=== PATIENT | female | born 1950 | race Caucasian/White ===

== ENCOUNTER 2022-04-12 08:15 | Outpatient (CLI) | payer MEDICARE, SELFPAY ==
--- NOTE | ~2022-04-12 | XR_ITS ---
XR knee LT 2V 04/12/2022 08:39 Indication: Left knee pain Procedure: 2 views left knee Comparison: No prior studies for comparison. Findings: No fracture, subluxation or dislocation. No significant joint space narrowing. No joint eff usion. No foreign bodies. Impression: 1: No significant bone or joint abnormality. Reviewed, dictated and finalized at location A. Impression: 1: No significant bone or joint abnormality.
== END 2022-04-12 08:16 | disposition home or self-care (01) ==
LOC: ANHIMG 08:22
PROVIDERS: PCP Family Medicine; Visit Provider Physician Assistant
DX: M25.562 Pain in left knee (principal)
CPT/HCPCS: 73560

== ENCOUNTER 2022-12-29 08:50 | Outpatient (CLI) | payer MEDICARE, SELFPAY ==
--- NOTE | ~2022-12-29 | MR_ITS ---
EXAMINATION: MR knee LT wo con DATE: 12/29/2022 09:22 INDICATION: Left knee pain and medial sided swelling post injury one year prior TECHNIQUE: Magnetic resonance imaging (MRI) of the left knee was performed without intravenous contra st. Sequences included coronal PD-weighted FSE, coronal PD-weighted FS FSE, sagittal T2-weighted FSE , sagittal PD-weighted FS FSE and axial PD weighted fat saturated FSE. COMPARISON: None. FINDINGS: Medial compartment: Complex tear of the body and posterior horn of the medial meniscus with displacement of a meniscal fl ap arising the meniscal body and which extends cephalad along the medial margin of the anterior weigh tbearing medial femoral condyle. There is diffuse partial thickness cartilage loss with scattered cho ndral surface regularity along the anterior to central weightbearing medial femoral condyle. Addition al partial thickness cartilage loss at the central to medial aspect of the medial tibial plateau. Lateral compartment: Lateral meniscus is normal. Articular cartilage is normal. Patellofemoral compartment: Mild partial-thickness cartilage loss with small amount of deeper chondral fissuring at the cephalad aspect of the medial patellar facet and apical ridge. Trochlear cartilage appears relatively preserve d. Ligaments and tendons: Anterior and posterior cruciate ligaments are normal. The medial collateral ligament and fibular josé ateral ligament complex are normal. The extensor mechanism is normal. The visualized medial and later al hamstring tendons as well as the iliotibial band are normal. Fluid: Small left knee joint effusion. No loose osteochondral bodies identified. There is some soft tissue e latonya surrounding a long thin Amador's cyst which measures approximately 7.5 cm in length and up to 1.6 x 0.8 cm maximal transaxial dimensions. Osseous/other: Bone alignment is normal. No fracture or pathologic marrow replacing process. IMPRESSION: 1. Complex tear of the body and posterior horn of the medial meniscus with small cephalad displaced m eniscal flap arising from the body. 2. Mild osteoarthritis with moderate grade chondromalacia in the medial and patellofemoral compartmen ts. 3. Likely reactive small left knee joint effusion and moderate-sized Amador's cyst. Reviewed, dictated and finalized at location A. [employer] MA[employer]GER IMPRESSION: 1. Complex tear of the body and posterior horn of the medial meniscus with smal l cephalad displaced meniscal flap arising from the body. 2. Mild osteoarthritis with moderate grade chondromalacia in the medial and pat ellofemoral compartments. 3. Likely reactive small left knee joint effusion and moderate-sized Amador's cy st.
== END 2022-12-29 08:51 ==
LOC: GOSHIMG 08:51
PROVIDERS: PCP Family Medicine; Visit Provider Orthopaedic Surgery
DX: S83.232A Complex tear of medial meniscus, current injury, left knee, initial encounter (principal); X58.XXXA Exposure to other specified factors, initial encounter; M17.12 Unilateral primary osteoarthritis, left knee
CPT/HCPCS: 73721

== ENCOUNTER 2023-02-02 10:23 | Outpatient (CLI) | payer MEDICARE, SELFPAY ==
--- NOTE | 2023-02-02 10:30 | ECG_ITS ---
Measurements Intervals [place] Rate: 63 P: 46 AL: 137 QRS: -2 QRSD: 84 T: 42 QT: 400 QTc: 411 Interpretive Statements SINUS RHYTHM BASELINE ARTIFACT- I, II, III, AVR, AVL, AVF, V4-V6 NORMAL ECG NO PREVIOUS ECG AVAILABLE FOR COMPARISON Electronically Signed On 02-02-2023 12:38:15 CDT by Jt Hager D.O.
== END 2023-02-02 10:24 | disposition home or self-care (01) ==
LOC: ANHSURGERY 10:27
PROVIDERS: PCP Family Medicine; Visit Provider Orthopaedic Surgery
DX: Z01.818 Encounter for other preprocedural examination (principal); I10 Essential (primary) hypertension
CPT/HCPCS: 93005

== ENCOUNTER 2023-02-06 01:10 | Day surgery (SDC) | payer MEDICARE, SELFPAY ==
--- NOTE | 2023-01-29 12:55 | PC.NURSE ---
Report to the Outpatient Waiting Room, entrance under the green pavilion located off [facility], at time __1130 on date __02/06/23 . Planned Procedure Time: __1330 . Time changes happen often and if your time is changed the preop area will call you the afternoon before. - You and your visitor will be asked to self-screen and do not enter if you have any COVID symptoms. - Only one visitor is requested with a max of two and NO children visitors are allowed at this time. - The patient visitor may be requested to leave or wait in car when not with patient due to distancing restrictions. - A mask is optional within the hospital at this time. Patients may have clear liquids (water, carbonated beverages, clear teas, apple juice) until 3 hours prior to surgery with a maximum of 20 ounces. - No food from midnight until time of surgery - Infants may have breast milk until 4 hours before surgery, formula 6 hours prior to surgery. - Children will be allowed to drink immediately following surgery. If applicable, please bring a bottle or sippy cup to assist with drinking. Juice, water, soda, and popsicles are readily available. For infants on formula, please bring formula the day of surgery. Pacifiers are allowed. Take the following medications with a SIP of water the morning of surgery: __METOPROLOL DO NOT STOP ANY OF YOUR OTHER PRESCRIPTION MEDICATIONS PRIOR TO SURGERY ?EXCEPT THE FOLLOWING Medications to discontinue per physician __IBUPROFEN 7 DAYS PRE OP PER DR POPE. LAST DOSE 01/29/23. ALL VITAMINS /SUPPLEMENTS 3 DAYS PRE OP .LAST DOSE 02/02/23 Please no make-up, nail argentine, hairspray, perfume, deodorant, or body powder the day of surgery. No jewelry (including any body piercings) or valuables the day of surgery, leave them at home. Please take a shower or bath the night before, or the morning of, surgery with an antibacterial soap. Wear comfortable, loose fitting clothing. Children are encouraged to wear pajamas. - Jewelry must be removed prior to entering the operating room. Rings and piercings that are not removed may be cut off. - The hospital will not accept responsibility for valuables. - Please leave all valuables, including medications, at home the day of surgery. If you are going home after surgery, a licensed driver license technician must drive you home. - NO public transportation without another adult if you receive anesthesia. - We recommend that an adult stay with you for 24 hours following discharge. - We also recommend that you do not drive, make important decision, drink alcoholic beverages, or take any drugs that were not prescribed by your health care provider for at least 24 hours after your discharge time. For Pediatric surgeries, we recommend two adults accompany the child home. Follow any additional instructions given to you from your surgeon. If you or anyone in your household have experienced Covid symptoms in the past week, please notify your surgeon or the nurse liaison at the phone number below for possible testing. Telephone instructions given to __PATIENT and asked if any additional questions and then verbalized understanding. Patient advised to call surgeon office or pre surgery nurse liaison [phone] if any additional questions.
[2023-01-29 13:02] VITALS: BMI 26.2
[2023-02-06] VITALS (8 sets, daily range): BP systolic 104–152; BP diastolic 57–87; PULSE 56–70; RESP 11–16; TEMP 36.1–36.3; O2SAT 98–100
--- NOTE | 2023-02-06 10:18 | WPDHPUPDATE1 ---
History and Physical Update Update Date/Time: 02/06/23 10:18 History and Physical has been reviewed, including an updated exam of the patient. There are NO changes in the patient's condition. Risks, benefits, and alternatives have been discussed and questions answered. Patient agrees to proceed with procedure.
--- NOTE | 2023-02-06 12:01 | WPDANESEPPF ---
Anes - Initial Pre Proc Eval Procedure: Operation Date: 02/06/23 13:30 Proposed Procedures p Left Knee Arthroscopy, Partial Medial Meniscectomy - Hans Dias MD Date/Time: 02/06/23 12:01 Surgeon: Hans Dias MD Pre Op Diagnosis: Lt Knee Medial Meniscus Tear Patient Data Age: 72 Gender: F Height: 1.57 m Weight: 64.3 kg Last Vital Signs Temp 36.3 C L 02/06/23 11:40 Pulse 70 02/06/23 11:40 Resp 16 02/06/23 11:40 BP 152/74 H 02/06/23 11:40 Pulse Ox 99 02/06/23 11:40 O2 Del Method Room Air 02/06/23 11:40 Allergies Allergy/AdvReac Type Severity Reaction Status Date / Time Penicillins Allergy Mild Rash Verified 02/06/23 11:51 Sulfa (Sulfonamide Allergy Mild Rash Verified 02/06/23 11:51 Antibiotics) Home Medications Medication Instructions Recorded Confirmed Type cholecalciferol (vitamin D3) 50 50 mcg PO DAILY 09/19/22 02/06/23 History mcg (2,000 unit) capsule lisinopril 10 mg tablet 20 mg PO DAILY 09/19/22 02/06/23 History metoprolol tartrate 50 mg tablet 50 mg PO BID 09/19/22 02/06/23 History sgitslkj-til-ucwqg acid 0.4 1 tablet PO DAILY 09/19/22 02/06/23 History mg-lycopene 300 mcg-lutein 250 mcg tablet (Centrum Silver) rosuvastatin 10 mg tablet 10 mg PO DAILY 09/19/22 02/06/23 History valacyclovir 1 gram tablet 1,000 mg PO PRN PRN Cold Sores 09/19/22 02/06/23 History zolpidem 5 mg tablet (Ambien) 5 mg PO QHS PRN Insomnia 09/19/22 02/06/23 History coQ10 (ubiquinol) 100 mg capsule 100 mg PO DAILY 01/29/23 02/06/23 History ibuprofen 400 mg tablet 400 mg PO Q6H PRN Pain 01/29/23 02/06/23 History acetaminophen 650 mg 650 mg PO Q8H 02/06/23 02/06/23 History tablet,extended release (Tylenol 8 Hour) Patient hx anesthesia problems: none Family hx anesthesia problems: none Results Review: All pre-operative results and documents have been reviewed as part of the pre-operative evaluation. [facility] Past Medical History Medical History (Updated 02/06/23 @ 12:03 by Tono Zaman MD) Encounter for screening for other suspected endocrine disorder H/O delivery 1967 & 1972 Hyperlipidemia Hypertension Uterine polyp x3 (removed) Vitamin D deficiency, unspecified Family History Family History (Updated 09/19/22 @ 11:13 by Kathy Monreal) Mother Arthritis Father Cancer Sibling Osteoarthritis Social History Social History Years smoked: 25 Smoking status: Former smoker Tobacco type: cigarettes Smoking end date: 11/12/02 Alcohol intake: current Alcohol use details: 1-2 DRINKS PER MONTH Substance use: never Substance use type: does not use Lack of Transportation: No Lack of Food: Never True Current Housing: I Have Housing Concerned About Future Housing: No Difficulty Paying Gas/Electric Bills: No Difficulty Paying for Meds: No Currently Unemployed: No Education: High School Diploma/GED Difficulty w/ Childcare or Family Care: No Living arrangements: with family Spiritual care concerns: No Anes - Eval Final PreProcedure Day of Procedure 02/06/23 12:01 Patient weight: overweight Heart: regular rate and rhythm Lungs: clear to auscultation and normal air movement Airway: Mallampati scale class II Neurological: alert and oriented Last oral intake: >/= 8 hours ASA classification: II Emergent: no Anesthetic plan: proceed Anesthesia type and monitoring: general LMA Results Review: All pre-operative results and documents have been reviewed as part of the pre-operative evaluation. Informed Consent: The patient's anesthetic plan and its attendant risks and benefits were discussed with the patient/family/POA. Questions were solicited and answers provided to the satisfaction of the patient/family/POA.
[2023-02-06] MEDS: ACETAMINOPHEN 500 MG TABLET 1000 MG PO (12:12)
[2023-02-06] MEDS: LACTATED RINGERS 1,000 ML 30 ML IV CONT (12:13)
[2023-02-06] MEDS: KETOROLAC 15 MG/ML VIAL (*BKC) IV PUSH (12:14)
[2023-02-06] MEDS: ceFAZolin 2 GM/D5W 50 ML 2 GM/50 ML BAG IVPB (13:02)
[2023-02-06] MEDS: BUPIVACAINE/EPINEPHRINE 0.25% 50 ML VIAL 20 ML INFILTRATE (13:29)
--- NOTE | 2023-02-06 14:30 | P.OP_ITS ---
Procedure Note - Detailed Date of Procedure 02/06/23 Pre-op Diagnosis Lt Knee Medial Meniscus Tear Post-op Diagnosis Same Procedure Performed Arthroscopic partial medial meniscectomy, left knee. Surgeon Hans Dias MD Anesthesia General Findings Extensive posterior medial meniscus tear with unstable flap displaced into the gutter. This was debrided. A small rent in the capsule occurred with removal of the meniscus. Good stable rim of meniscus achieved. Mild chondromalacia grade 1 in the medial and patellofemoral compartments. ACL and lateral compartment benign. Description of Procedure The patient was identified and the surgical site confirmed and signed in the preoperative holding area. Antibiotics were started per protocol. She was brought to the operative room and transferred to the OR table. A general anesthetic was administered. Supine position with the operative lower extremity position in the leg combs after placement of a well padded tourniquet. The leg support was lowered and the contralateral limb was supported with a soft bolster. The knee was prepped and draped in the usual sterile fashion. A time- out was performed. The portal sites were marked and infiltrated with 0.5% Marcaine 20 mL. The limb was exsanguinated and the tourniquet inflated to 300 mL Hg. Standard inferolateral and inferomedial portals were established. Inflow was obtained with the saline pump. The camera was introduced. Diagnostic inspection of the joint was accomplished. The meniscus was debrided with the arthroscopic shaver and punches until stable. The arthroscopic instruments were removed. The tourniquet released and wounds closed with subcutaneous 4-0 Monocryl absorbable suture. Steri strips and a sterile dressing were applied. A light elastic wrap was placed. The patient was extubated and brought to the recovery room in stable condition. Estimated Blood Loss 5 Drains No Complications No immediate complications Condition Stable Disposition PACU [facility] Billing Surgery - Charge Forward: Surgery Billing
== END 2023-02-06 15:50 | disposition home or self-care (01) ==
PROVIDERS: PCP Family Medicine; Visit Provider Orthopaedic Surgery
PROC: (CPT 29870; principal; 2023-02-06 13:30)
DX: S83.242A Other tear of medial meniscus, current injury, left knee, initial encounter (principal); X50.0XXA Overexertion from strenuous movement or load, initial encounter; M22.42 Chondromalacia patellae, left knee; I10 Essential (primary) hypertension; E78.5 Hyperlipidemia, unspecified; E55.9 Vitamin D deficiency, unspecified; Z87.891 Personal history of nicotine dependence
CPT/HCPCS: 29881; A9270; J0690; J1100; J1885; J2405; J2704; J3010; J7120